=== PATIENT | female | born 1945 | race Caucasian/White ===

== ENCOUNTER → 2018-04-16 | Outpatient (CLI) | payer MEDICARE, BC ==
[~2018-04-16] MED LIST: ALLO300T PO; ASPI-496 PO; CHOL10002 PO; CIPR500T87 PO; ESTR0.6246 PO; FURO20TA3 PO; HYDR-3240 PO; LANS15CA PO; LEVO88TA2 PO; LOSA1TAB19 PO; METO25TA35 PO
== END | disposition home or self-care (01) ==
LOC: CVU 13:49
PROVIDERS: ATTEND Internal Medicine Cardiovascular Disease
DX: N28.0 Ischemia and infarction of kidney (principal); I70.0 Atherosclerosis of aorta; I10 Essential (primary) hypertension
CPT/HCPCS: 93975

== ENCOUNTER 2018-12-12 09:17 | Outpatient (CLI) | payer MEDICARE, BC | END 2018-12-12 23:59 | disposition home or self-care (01) | LOC: CVU 09:17 | PROVIDERS: ATTEND Internal Medicine Cardiovascular Disease | DX: R09.89 Other specified symptoms and signs involving the circulatory and respiratory systems (principal); I48.91 Unspecified atrial fibrillation; I10 Essential (primary) hypertension | CPT/HCPCS: 93922 ==

== ENCOUNTER 2019-09-04 11:43 | Outpatient (CLI) | payer MEDICARE, BC ==
[~2019-09-04] VITALS: Ht 160 cm; Wt 45.8 kg
[2019-09-04] MEDS ORDERED: SODIUM CHLORIDE 0.9% 1,000 ML IV SCH (12:30)
[2019-09-04 12:42] VITALS: BP 136/85
[2019-09-04 12:49] LABS: INTERNATIONAL NORMALIZED RATIO 1.14 (0.93-1.1); PROTHROMBIN TIME 12.1 Seconds (9.6-11.5)
[2019-09-04] MEDS ORDERED: LEVO100T5 PO (12:51)
[2019-09-04] MEDS ORDERED: HYDR-36 PO (12:52)
[2019-09-04] MEDS ORDERED: LANS15CA5 PO (12:54)
[2019-09-04] MEDS ORDERED: ACYC-114 PO (12:54)
[2019-09-04] MEDS ORDERED: IRBE300T8 PO (12:54)
[2019-09-04] MEDS ORDERED: AMLO2.5T5 PO (12:54)
[2019-09-04] MEDS ORDERED: FENTANYL PF 100 MCG/2ML ONE (13:13)
[2019-09-04] MEDS ORDERED: MIDAZOLAM 1 MG/ML, 5ML ONE (13:13)
[2019-09-04] MEDS ORDERED: FLUMAZENIL 0.1 MG/1 ML, 5ML ONE (13:13)
[2019-09-04] MEDS ORDERED: NALOXONE 1 MG/ML, 2ML ONE (13:14)
== END 2019-09-04 15:15 | disposition home or self-care (01) ==
LOC: RAD 11:43
PROVIDERS: ATTEND Anesthesiology
DX: R80.9 Proteinuria, unspecified (principal); E85.89 Other amyloidosis; I12.9 Hypertensive chronic kidney disease with stage 1 through stage 4 chronic kidney disease, or unspecified chronic kidney disease; N18.3 Chronic kidney disease, stage 3 (moderate); D63.1 Anemia in chronic kidney disease; E78.5 Hyperlipidemia, unspecified; E89.0 Postprocedural hypothyroidism; E55.9 Vitamin D deficiency, unspecified; G89.4 Chronic pain syndrome; Z79.01 Long term (current) use of anticoagulants; Z79.890 Hormone replacement therapy; Z79.899 Other long term (current) drug therapy; Z85.72 Personal history of non-Hodgkin lymphomas; Z87.891 Personal history of nicotine dependence; Z90.710 Acquired absence of both cervix and uterus; Z82.49 Family history of ischemic heart disease and other diseases of the circulatory system; Z80.1 Family history of malignant neoplasm of trachea, bronchus and lung; Z80.3 Family history of malignant neoplasm of breast
CPT/HCPCS: 36415; 50200; 74176; 77012; 85610; 88300; 99156; 99157; J2250; J3010; J7030; J2310